=== PATIENT | male | born 1960 | race Caucasian/White ===

== ENCOUNTER 2019-06-01 12:58 | Emergency (ER) | payer MEDICARE, MEDICAID ==
[2019-06-01 15:04] VITALS: O2SAT 98
[2019-06-01 15:05] VITALS: TEMP 98.2
[2019-06-01 16:09] VITALS: BP 146/89
== END 2019-06-01 17:15 | disposition left against medical advice (07) ==
LOC: ER 12:58
DX: Z76.0 Encounter for issue of repeat prescription (principal); Z53.21 Procedure and treatment not carried out due to patient leaving prior to being seen by health care provider

== ENCOUNTER → 2020-05-18 | Outpatient (CLI) | payer MEDICARE | LOC: BFHH 12:05 | PROVIDERS: ATTEND Family Medicine | DX: I69.351 Hemiplegia and hemiparesis following cerebral infarction affecting right dominant side (principal); E03.9 Hypothyroidism, unspecified; I10 Essential (primary) hypertension ==